=== PATIENT | female | born 1945 | race Caucasian/White ===

== ENCOUNTER → 2016-07-29 | Outpatient (CLI) | payer MEDICARE ==
[~2016-07-29] MED LIST: ARICEPT PO; ATIVAN PO; COREG12.5 MG PO; LASIX20 MG PO; LISINOPRIL20 MG PO; LO-DOSE ASPIRIN81 M1 PO; MIRAPEX1 MG PO; MULTI VITAMIN1 EACH PO; NAMENDA10 MG PO; OMEPRAZOLE20 M1 PO; ONGLYZA5 MG PO; REMERON15 MG PO; SEROQUEL300 MG PO; SEROQUEL50 M1 PO; SYNTHROID0.05 MG PO; VITAMIN D350000 UNIT PO; ZYLOPRIM100 MG PO
--- NOTE | ~2016-07-29 | CO ---
Unit #: [id number] #: [id number] Patient: FIOR LEWIS [id number] [address] [address] [id number] O MR#: [id number] NAME: FIOR LEWIS. ROOM: Age: 70 Sex: F Admission Date: 07/29/2016 : 1945 Attending Physician: Rashard Aldridge M.D. Primary Care Physician: Sabino Kelly M.D. Consultation Date: 07/29/2016 CONSULTATION REPORT REASON FOR CONSULTATION Pre ECT medical evaluation prior to ECT procedure scheduled by Dr. Rashard Aldridge for August 04, 2016. HISTORY OF PRESENT ILLNESS The patient is a 70-year-old female who presents to preprocedural screening for the reasons indicated above. She has had a history of major depression, general anxiety disorder, and dementia for which she was evaluated by Dr. Aldridge. Patient has undergone ECT in the past, although she states it has been a long time ago. She has no complaints other than tired at the time of this interview. She is accompanied by her daughter today. PAST MEDICAL HISTORY 1. Major depression. 2. Dementia. 3. General anxiety disorder. 4. Urinary tract infection. 5. Diabetes mellitus. 6. Hypertension. 7. Hypothyroidism. 8. Gout. 9. GERD. 10. Possible obstructive sleep apnea without definitive diagnosis. 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 12. Osteoarthritis. 13. Restless leg syndrome. 14. Reports history of CVA. 15. The patient denies a past medical history of heart attack, congestive heart failure, or chronic kidney disease. PAST SURGICAL HISTORY 1. Bilateral wrist surgeries. 2. Repair of head laceration. ALLERGIES Denies latex allergy. Medication allergies: Bupropion HCl (hives), amlodipine (severe edema), amoxicillin (rash), and duloxetine (severe sodium depletion). CURRENT MEDICATIONS 1. Onglyza 5 mg p.o. every morning. 2. Carvedilol 12.5 mg p.o. b.i.d. 3. Lisinopril 20 mg p.o. every morning. Unit #: [id number] #: [id number] Patient: FIOR LEWIS 4. Lasix 20 mg p.o. every morning. 5. Synthroid 0.05 mg p.o. every morning. 6. Zyloprim 100 mg p.o. every morning. 7. Omeprazole 20 mg p.o. every morning. 8. Namenda 10 mg p.o. at bedtime. 9. Aricept 10 mg p.o. at bedtime. 10. Lorazepam 0.5 mg p.o. every six hours p.r.n. anxiety. 11. Mirapex 1 mg p.o. t.i.d. 12. Remeron 15 mg p.o. every evening. 13. Seroquel 300 mg p.o. at bedtime. 14. Seroquel 50 mg p.o. b.i.d. at breakfast and lunch. 15. Multivitamin one p.o. every morning. 16. Low-dose aspirin EC 81 mg p.o. every morning. 17. Vitamin D3 at 50,000 units p.o. weekly. SOCIAL HISTORY Denies tobacco use, ETOH use, and illicit drug use. REVIEW OF SYSTEMS A 10-point review of systems is conducted and negative except as indicated under history of present illness and past medical history above. PHYSICAL EXAMINATION GENERAL: A 70-year-old female awake, alert, in no acute distress. VITAL SIGNS: Temperature 97.3, heart rate 67, respiratory rate 17, blood pressure 130/82, oxygen saturation 97% on room air. HEENT: Atraumatic, normocephalic. Sclerae anicteric. No discharge from eyes, ears, or nares. LYMPH: No preauricular, postauricular, tonsillar, submental, anterior, posterior, cervical adenopathy. ENDOCRINE: No thyromegaly, thyroid nodules, or tenderness. RESPIRATORY: Clear to auscultation in all lewis bilaterally without wheezes, rhonchi, or rales. CARDIOVASCULAR: S1, S2. Regular rate and rhythm without murmur or rub. GASTROINTESTINAL: Bowel sounds positive x4. Soft, nontender, nondistended. EXTREMITIES: No edema, cyanosis, or clubbing. MUSCULOSKELETAL: Strength 5/5 all extremities bilaterally to flexion/extension. NEUROLOGIC: Speech clear. Answers questions appropriately. Cranial nerves II-XII grossly intact. Follows commands. DIAGNOSTIC STUDIES LABORATORY: WBC 12.2, hemoglobin 12.7, hematocrit 39, platelets 204,000. Urinalysis: Leukocyte esterase 2+, nitrite negative, WBCs 10-25, bacteria negative, occasional squamous cells. Urine culture and sensitivity pending at this time. Sodium 140, potassium 3.6, chloride 105, CO2 of 27, glucose 132, BUN 16, creatinine 1, calcium 9.2. AST 17, ALT 13, alkaline phosphatase 100, bilirubin total 0.2, total protein 7.1, albumin 3.6. TSH 5.14. CARDIOVASCULAR: A 12-lead EKG: Sinus rhythm, borderline T abnormalities in anterior leads. No significant change from previous ECG. Date of study, June 04, 2016. IMPRESSION The patient is a 70-year-old female who presents to Unit #: [id number] #: [id number] Patient: FIOR LEWIS preprocedural screening for: 1. Pre electroconvulsive treatment medical evaluation: Patient's [place] Revised Cardiac Risk Index is equal to 1 to 2.5% if this patient were proceeding with a surgical procedure not involving the abdomen or the pelvis of 1 to 2.5%. This would represent the patient's perioperative risk of cardiac , fatal or nonfatal myocardial infarction, cardiopulmonary arrest, arrhythmia, and/or pulmonary edema. The patient has undergone electroconvulsive treatment in the past and tolerated it well. 2. Major depression (F33.2). 3. Dementia (F02.81). 4. General anxiety disorder (F41.1). 5. Possible urinary tract infection with history of urinary tract infections. Urine culture and sensitivity reports pending at this time. We have called a prescription to the patient's pharmacy ([facility] [phone]) today. The patient's daughter will pick the prescription up. 6. Mild leukocytosis, possibly related to urinary tract infection. The patient has no other signs or symptoms of infection at this time. 7. Diabetes mellitus. 8. Hypertension. 9. Hypothyroidism. 10. Gout. 11. Gastroesophageal reflux disease. 12. Possible obstructive sleep apnea: Patient has never been formally evaluated and does not have this diagnosis. She does not CPAP. 13. Vision loss, left peripheral eye. 14. Osteoarthritis. 15. Restless leg syndrome. Thank you for allowing us to participate in the care of this patient. All further tory-ECT orders including medication management will be per order of Dr. Aldridge. Dictated by... Paula Pierce A.P.R.N. for Tatianna Calderon/mellissa TD: 07/29/2016 15:18 JOB #: [id number] CONSULTATION REPORT Page 1 of 1 X Paula Pierce APRN CONSULTATION REPORT
[2016-07-29 12:47] LABS: HEMOGLOBIN 12.7 gm/dL (12.0-16.0); MEAN CELL VOLUME 88.2 FL (83-96); MEAN CORPUSCULAR HEMOGLOBIN 28.7 PG (28-34); MEAN CORPUSCULAR HGB CONC 32.5 g/dL (30-36); MEAN PLATELET VOLUME 10.7 FL (6.5-11.5); RED BLOOD COUNT 4.42 X10e (3.90-5.30); RED CELL DISTRIBUTION WIDTH 14.6 % (11.0-15.5); URINE APPEARANCE CLEAR; URINE BILIRUBIN NEG (NEG); URINE BLOOD NEG (NEG); URINE COLOR DK YELLOW; URINE GLUCOSE NEG (NEG); URINE KETONE NEG (NEG); URINE LEUKOCYTE ESTERASE 2+ (NEG); URINE NITRATE NEG (NEG); URINE PH 5.5 (5-8); URINE PROTEIN NEG (NEG); URINE SPECIFIC GRAVITY 1.016 (1.003-1.035); URINE UROBILINOGEN 0.2 MG/DL (NEG); WHITE BLOOD COUNT 12.2 X10e3 (4.0-10.5)
[2016-07-29 12:49] LABS: URINE BACTERIA AUWI NEG (NEGATIVE); URINE SQUAMOUS EPITHELIAL CELL OCC /[HPF]
[2016-07-29 13:08] LABS: URINE SOURCE CLEAN CATCH
[2016-07-29 13:09] LABS: URINE MUCUS PRESENT
[2016-07-29 13:11] LABS: URBCS1 AUWI 0-2 /[HPF] (0-2)
[2016-07-29 13:23] LABS: ALBUMIN SERUM 3.6 g/dL (3.5-5.0); BILIRUBIN,TOTAL 0.2 mg/dL (0.2-2.0); CALCIUM SERUM 9.2 mg/dL (8.4-10.2); GLOM FILT RATE Estimated 56.7 mL/min (>60); POTASSIUM 3.6 mmol/L (3.5-5.1); PROTEIN TOTAL SERUM 7.1 g/dL (6.0-8.3)
== END | disposition home or self-care (01) ==
LOC: CAMB 11:56
PROVIDERS: Psychiatry & Neurology Psychiatry
DX: Z01.812 Encounter for preprocedural laboratory examination (principal); F33.2 Major depressive disorder, recurrent severe without psychotic features; F02.81 Dementia in other diseases classified elsewhere, unspecified severity, with behavioral disturbance; F41.1 Generalized anxiety disorder; D72.829 Elevated white blood cell count, unspecified; E11.9 Type 2 diabetes mellitus without complications; I10 Essential (primary) hypertension; E03.9 Hypothyroidism, unspecified; M10.9 Gout, unspecified; K21.9 Gastro-esophageal reflux disease without esophagitis; H54.62 Unqualified visual loss, left eye, normal vision right eye; M19.90 Unspecified osteoarthritis, unspecified site; G25.81 Restless legs syndrome
CPT/HCPCS: 36415; 80053; 81003; 84443; 85027; 87086

== ENCOUNTER → 2016-08-04 | Day surgery (SDC) | payer OTHER ==
--- NOTE | ~2016-08-04 | ECT ---
Unit #: [id number] #: [id number] Patient: FIOR LEWIS [id number] [place] [address] [id number] O MR#: [id number] NAME: FIOR LEWIS. ROOM: Age: 70 Sex: F Admission Date: 08/04/2016 : 1945 Discharge Date: Attending Physician: Rashard Aldridge M.D. Primary Care Physician: Primary Care Physician No ECT NOTE DATE OF TREATMENT 08/04/2016 TREATMENT NUMBER 1 TREATMENT MODALITY Unilateral ECT. ANESTHESIA Glycopyrrolate: 0.2 mg. Brevital: 120 mg. Succinylcholine: 80 mg. TREATMENT PARAMETERS Charge: 60 millicoulombs Pulse Width: 1.0 milliseconds Frequency: 30 Hertz Duration: 1.25 seconds Current: 800 milliamps TREATMENT DELIVERED Energy: 16 joules Impedance: 327 ohms Charge: 60 millicoulombs SEIZURE MEASURES OMS: 21 seconds EE seconds COMPLICATIONS None. SUMMARY The patient had a good seizure with OMS and EEG measures. Depression has been pretty severe with psychomotor retardation, poor focus, and concentration, loss of interest in activities, social isolation, feelings of guilt, poor sleep, loss of appetite. No suicidal or homicidal ideation is noted. I will continue her ECT treatments on Thursday. DIFFERENTIAL DIAGNOSES AXIS I: F33.2, also F02.81 AXIS II: Deferred. Unit #: [id number] #: [id number] Patient: FIOR LEWIS AXIS III: Nothing acute. Dictated by... Tatianna Tom/elisa TD: 08/05/2016 07:04 JOB #: [id number] ECT NOTE Page 1 of 1 X Rashard Aldridge MD <ELECTRONICALLY SIGNED> 10/27/16 1207 X ECT
== END | disposition home or self-care (01) ==
LOC: CSUR 08:18
DX: F33.2 Major depressive disorder, recurrent severe without psychotic features (principal); F02.81 Dementia in other diseases classified elsewhere, unspecified severity, with behavioral disturbance; K21.9 Gastro-esophageal reflux disease without esophagitis; I10 Essential (primary) hypertension; E11.9 Type 2 diabetes mellitus without complications; Z79.4 Long term (current) use of insulin; M10.9 Gout, unspecified; E03.9 Hypothyroidism, unspecified; G25.81 Restless legs syndrome; H54.62 Unqualified visual loss, left eye, normal vision right eye; Z79.899 Other long term (current) drug therapy; Z87.440 Personal history of urinary (tract) infections; Z88.8 Allergy status to other drugs, medicaments and biological substances; Z88.0 Allergy status to penicillin
CPT/HCPCS: 82947; 90870; J0330

== ENCOUNTER → 2016-08-06 | Day surgery (SDC) | payer MEDICARE ==
--- NOTE | ~2016-08-06 | ECT ---
Unit #: [id number] #: [id number] Patient: FIOR LEWIS [id number] [address] [address] [id number] O MR#: [id number] NAME: FIOR LEWIS. ROOM: Age: 70 Sex: F Admission Date: 08/06/2016 : 1945 Discharge Date: Attending Physician: Rashard Aldridge M.D. Primary Care Physician: No Primary Care Physician ECT NOTE DATE OF TREATMENT . TREATMENT NUMBER 2 TREATMENT MODALITY Unilateral ECT. ANESTHESIA Glycopyrrolate: 0.2 mg. Brevital: 120 mg. Succinylcholine: 80 mg. TREATMENT PARAMETERS Charge: 240 millicoulombs Pulse Width: 1.0 milliseconds Frequency: 30 Hertz Duration: 5 seconds Current: 800 milliamps TREATMENT DELIVERED Energy: 56.2 joules Impedance: 285 ohms Charge: 240 millicoulombs SEIZURE MEASURES OMS: 10 seconds EE seconds COMPLICATIONS None. SUMMARY The patient had a good seizure with both OMS and EEG measures. Depression has not really shown any change from her first ECT. No significant side effects or problems noted. I will continue her ECT treatments on Thursday, continuing at a 4 time seizure threshold and will just assess on a day-to-day basis for mood symptoms and adjust energies as needed. DIFFERENTIAL DIAGNOSES AXIS I: F33.2. AXIS II: Deferred. AXIS III: Nothing acute. Unit #: [id number] #: [id number] Patient: FIOR LEWIS Dictated by... Tatianna Tom/alin TD: 08/06/2016 15:38 JOB #: [id number] ECT NOTE Page 1 of 1 X Rashard Aldridge MD <ELECTRONICALLY SIGNED> 10/27/16 1207 X ECT
== END | disposition home or self-care (01) ==
LOC: CSUR 08:25
DX: F33.2 Major depressive disorder, recurrent severe without psychotic features (principal); E11.9 Type 2 diabetes mellitus without complications; K21.9 Gastro-esophageal reflux disease without esophagitis; Z79.4 Long term (current) use of insulin; I10 Essential (primary) hypertension; Z88.8 Allergy status to other drugs, medicaments and biological substances
CPT/HCPCS: 82947; 90870; J0330; J1885

== ENCOUNTER → 2016-08-11 | Day surgery (SDC) | payer MEDICARE ==
--- NOTE | ~2016-08-11 | ECT ---
Unit #: [id number] #: [id number] Patient: FIOR LEWIS [id number] [address] [address] [id number] O MR#: [id number] NAME: FIOR LEWIS. ROOM: Age: 70 Sex: F Admission Date: 08/11/2016 : 1945 Discharge Date: Attending Physician: Rashard Aldridge M.D. Primary Care Physician: Primary Care Physician No ECT NOTE DATE OF TREATMENT 08/11/2016 TREATMENT NUMBER 3 TREATMENT MODALITY Unilateral ECT ANESTHESIA Glycopyrrolate: 0.2 mg Brevital: 120 mg Succinylcholine: 80 mg TREATMENT PARAMETERS Charge: 264 millicoulombs Pulse Width: 1.0 milliseconds Frequency: 30 Hertz Duration: 5.5 seconds Current: 800 milliamps TREATMENT DELIVERED Energy: 58.3 joules Impedance: 274 ohms Charge: 264 millicoulombs SEIZURE MEASURES OMS: 12 seconds EE seconds COMPLICATIONS None. SUMMARY The patient had a good seizure with OMS and EEG measures. Her depression has not really changed much after her first couple of ECTs. No side effects or issues noted. I will continue her ECT treatments on Thursday. DIFFERENTIAL DIAGNOSES AXIS I: F33.2. AXIS II: Deferred. AXIS III: Nothing acute. Unit #: [id number] #: [id number] Patient: FIOR LEWIS Dictated by... Tatianna Tom/vanessa TD: 08/12/2016 20:30 JOB #: [id number] ECT NOTE Page 1 of 1 X Rashard Aldridge MD <ELECTRONICALLY SIGNED> 10/27/16 1207 X ECT
== END | disposition home or self-care (01) ==
LOC: CSUR 08:52
DX: F33.2 Major depressive disorder, recurrent severe without psychotic features (principal); F02.81 Dementia in other diseases classified elsewhere, unspecified severity, with behavioral disturbance; F41.1 Generalized anxiety disorder; H54.62 Unqualified visual loss, left eye, normal vision right eye; K21.9 Gastro-esophageal reflux disease without esophagitis; I10 Essential (primary) hypertension; M10.9 Gout, unspecified; E11.9 Type 2 diabetes mellitus without complications; Z79.4 Long term (current) use of insulin; E03.9 Hypothyroidism, unspecified; Z79.899 Other long term (current) drug therapy; Z87.440 Personal history of urinary (tract) infections; Z98.890 Other specified postprocedural states; Z88.8 Allergy status to other drugs, medicaments and biological substances; Z88.0 Allergy status to penicillin
CPT/HCPCS: 82947; 90870; J0330; J1885

== ENCOUNTER → 2016-08-15 | Day surgery (SDC) | payer MEDICARE ==
--- NOTE | ~2016-08-15 | ECT ---
Unit #: [id number] #: [id number] Patient: FIOR LEWIS [id number] [address] [address] [id number] O MR#: [id number] NAME: FIOR LEWIS. ROOM: Age: 70 Sex: F Admission Date: 08/15/2016 : 1945 Discharge Date: Attending Physician: Rashard Aldrideg M.D. Primary Care Physician: Primary Care Physician No ECT NOTE DATE OF TREATMENT 08/15/2016 TREATMENT NUMBER 4 TREATMENT MODALITY Unilateral ECT ANESTHESIA Glycopyrrolate: 0.2 mg Brevital: 120 mg Succinylcholine: 80 mg TREATMENT PARAMETERS Charge: 352 millicoulombs Pulse Width: 1.0 milliseconds Frequency: 40 Hertz Duration: 5.5 seconds Current: 800 milliamps TREATMENT DELIVERED Energy: 79 joules Impedance: 275 ohms Charge: 352 millicoulombs SEIZURE MEASURES OMS: 17 seconds EE seconds COMPLICATIONS None. SUMMARY The patient had a good seizure with both OMS and EEG measures. Depression has not really shown much of a change in her initial few ECTs. We will continue her ECT treatment on Thursday and we will just treat and follow. DIFFERENTIAL DIAGNOSES AXIS I: F33.2. AXIS II: Deferred. AXIS III: Nothing acute. Unit #: [id number] #: [id number] Patient: FIOR LEWIS Dictated by... Tatianna Tom/vanessa TD: 08/15/2016 21:22 JOB #: [id number] ECT NOTE Page 1 of 1 X Rashard Aldridge MD <ELECTRONICALLY SIGNED> 10/27/16 1207 X ECT
== END | disposition home or self-care (01) ==
LOC: CSUR 07:52
DX: F33.2 Major depressive disorder, recurrent severe without psychotic features (principal); E03.9 Hypothyroidism, unspecified; K21.9 Gastro-esophageal reflux disease without esophagitis; Z87.440 Personal history of urinary (tract) infections; Z86.73 Personal history of transient ischemic attack (TIA), and cerebral infarction without residual deficits; Z88.1 Allergy status to other antibiotic agents; Z88.8 Allergy status to other drugs, medicaments and biological substances; Z79.84 Long term (current) use of oral hypoglycemic drugs; Z79.82 Long term (current) use of aspirin; Z79.899 Other long term (current) drug therapy
CPT/HCPCS: 82947; 90870; J0330; J1885

== ENCOUNTER → 2016-08-20 | Day surgery (SDC) | payer MEDICARE ==
--- NOTE | ~2016-08-20 | ECT ---
Unit #: [id number] #: [id number] Patient: FIOR LEWIS [id number] [place] [address] [id number] O MR#: [id number] NAME: FIOR LEWIS. ROOM: Age: 71 Sex: F Admission Date: 08/20/2016 : 1945 Discharge Date: Attending Physician: Rashard Aldridge M.D. Primary Care Physician: Primary Care Physician No ECT NOTE DATE OF TREATMENT 08/20/2016 TREATMENT NUMBER 5 MODE Unilateral ECT. ANESTHESIA Glycopyrrolate: 0.2 mg. Brevital: 120 mg. Succinylcholine: 80 mg. TREATMENT PARAMETERS Charge: 352 millicoulombs Pulse Width: 1.0 milliseconds Frequency: 40 Hertz Duration: 5.5 seconds Current: 800 milliamps TREATMENT DELIVERED Energy: 88.5 joules Impedance: 330 ohms Charge: 352 millicoulombs SEIZURE MEASURES OMS: 20 seconds EE seconds SUMMARY The patient had a good seizure with OMS and EEG measures. Depression seems to be showing some benefit. She is getting more pleasure from activities. She has got more engaged in activities and seems to be more interacting with peers in a fci. I will continue her ECT treatments on Thursday and with a plan of wrapping up her treatments next week. DIFFERENTIAL DIAGNOSES AXIS I: F33.2 AXIS II: Deferred. AXIS III: Nothing acute. Unit #: [id number] #: [id number] Patient: FIOR LEWIS Dictated by... Tatianna Tom/elisa TD: 08/21/2016 12:29 JOB #: [id number] ECT NOTE Page 1 of 1 X Rashard Aldridge MD <ELECTRONICALLY SIGNED> 10/27/16 1207 X ECT
== END | disposition home or self-care (01) ==
LOC: CSUR 08:00
DX: F33.2 Major depressive disorder, recurrent severe without psychotic features (principal); E11.9 Type 2 diabetes mellitus without complications; K21.9 Gastro-esophageal reflux disease without esophagitis; I10 Essential (primary) hypertension; E03.9 Hypothyroidism, unspecified; Z87.440 Personal history of urinary (tract) infections; Z86.73 Personal history of transient ischemic attack (TIA), and cerebral infarction without residual deficits; Z88.1 Allergy status to other antibiotic agents; Z88.8 Allergy status to other drugs, medicaments and biological substances; Z79.84 Long term (current) use of oral hypoglycemic drugs; Z79.82 Long term (current) use of aspirin; Z79.899 Other long term (current) drug therapy
CPT/HCPCS: 82947; 90870; J0330; J1885

== ENCOUNTER → 2016-08-22 | Day surgery (SDC) | payer MEDICARE ==
--- NOTE | ~2016-08-22 | ECT ---
Unit #: [id number] #: [id number] Patient: FIOR LEWIS [id number] [place] [address] [id number] O MR#: [id number] NAME: FIOR LEWIS. ROOM: Age: 71 Sex: F Admission Date: 08/22/2016 : 1945 Discharge Date: Attending Physician: Rashard Aldridge M.D. Primary Care Physician: Sabino Kelly M.D. ECT NOTE DATE OF TREATMENT 08/22/2016 TREATMENT NUMBER 6 TREATMENT MODALITY Unilateral ECT. ANESTHESIA Glycopyrrolate: 0.2 mg Brevital: 120 mg Succinylcholine: 100 mg TREATMENT PARAMETERS Charge: 352 millicoulombs Pulse Width: 1.0 milliseconds Frequency: 40 Hertz Duration: 5.5 seconds Current: 800 milliamps TREATMENT DELIVERED Energy: 83.3 joules Impedance: 290 ohms Charge: 352 millicoulombs SEIZURE MEASURES OMS: 17 seconds EE seconds COMPLICATIONS None. SUMMARY The patient had a good seizure with her OMS and EEG measures. Depression has shown significant improvement since the beginning her ECT. She is much more interactive with staff and peers. She has been more engaged her daughter. She seems to be smiling more more interest in activities. She is sleeping better energy seems to have improved during the day. I will give her 1 more ECT treatment on Thursday to wrap up her course and if she has done well over the next 4 days we will conclude her ECT at that point and she will follow up with me in my outpatient clinic. DIFFERENTIAL DIAGNOSIS Unit #: [id number] #: [id number] Patient: FIOR LEWIS [place] I: F33.2. [place] II: Deferred. [place] III: Nothing acute. Dictated by... Tatianna Tom/shane TD: 08/23/2016 08:21 JOB #: [id number] ECT NOTE Page 1 of 1 X Rashard Aldridge MD <ELECTRONICALLY SIGNED> 10/27/16 1207 X ECT
== END | disposition home or self-care (01) ==
LOC: CSUR 07:24
DX: F33.2 Major depressive disorder, recurrent severe without psychotic features (principal); E03.9 Hypothyroidism, unspecified; K21.9 Gastro-esophageal reflux disease without esophagitis; F03.90 Unspecified dementia, unspecified severity, without behavioral disturbance, psychotic disturbance, mood disturbance, and anxiety; F41.9 Anxiety disorder, unspecified; I10 Essential (primary) hypertension; E11.9 Type 2 diabetes mellitus without complications; Z79.84 Long term (current) use of oral hypoglycemic drugs; M19.90 Unspecified osteoarthritis, unspecified site; M10.9 Gout, unspecified; Z87.440 Personal history of urinary (tract) infections; Z88.8 Allergy status to other drugs, medicaments and biological substances
CPT/HCPCS: 82947; 90870; J0330; J1885

== ENCOUNTER → 2016-08-27 | Day surgery (SDC) | payer MEDICARE ==
--- NOTE | ~2016-08-27 | ECT ---
Unit #: [id number] #: [id number] Patient: FIOR LEWIS [id number] [address] [address] [id number] O MR#: [id number] NAME: FIOR LEWIS. ROOM: Age: 71 Sex: F Admission Date: 08/27/2016 : 1945 Discharge Date: Attending Physician: Rashard Aldridge M.D. Primary Care Physician: Sabino Kelly M.D. ECT NOTE DATE OF TREATMENT 08/27/2016 TREATMENT NUMBER 7 TREATMENT MODALITY Unilateral ECT ANESTHESIA Glycopyrrolate: 0.2 mg Brevital: 120 mg Succinylcholine: 80 mg TREATMENT PARAMETERS Charge: 440 millicoulombs Pulse Width: 1.0 milliseconds Frequency: 50 Hertz Duration: 5.5 seconds Current: 800 milliamps TREATMENT DELIVERED Energy: 113.1 joules Impedance: 296 ohms Charge: 440 millicoulombs SEIZURE MEASURES OMS: 11 seconds EE seconds COMPLICATIONS None. SUMMARY The patient did have a shorter seizure with OMS and EEG measures today. I will increase the energy to maximum stimulus for Thursday and we will conclude her ECTs at that point. DIFFERENTIAL DIAGNOSIS [place] I: F33.2. [place] II: Deferred. [place] III: Nothing acute. Unit #: [id number] #: [id number] Patient: FIOR LEWIS Dictated by... Tatianna Tom/shane TD: 08/28/2016 02:22 JOB #: [id number] ECT NOTE Page 1 of 1 X Rashard Aldridge MD <ELECTRONICALLY SIGNED> 10/27/16 1207 X ECT
== END | disposition home or self-care (01) ==
LOC: CSUR 07:22
DX: F33.2 Major depressive disorder, recurrent severe without psychotic features (principal); E03.9 Hypothyroidism, unspecified; K21.9 Gastro-esophageal reflux disease without esophagitis; F03.90 Unspecified dementia, unspecified severity, without behavioral disturbance, psychotic disturbance, mood disturbance, and anxiety; F41.9 Anxiety disorder, unspecified; E11.9 Type 2 diabetes mellitus without complications; M19.90 Unspecified osteoarthritis, unspecified site; I10 Essential (primary) hypertension; Z87.440 Personal history of urinary (tract) infections; Z86.73 Personal history of transient ischemic attack (TIA), and cerebral infarction without residual deficits; Z88.1 Allergy status to other antibiotic agents; Z88.6 Allergy status to analgesic agent; Z88.8 Allergy status to other drugs, medicaments and biological substances; Z79.899 Other long term (current) drug therapy; Z79.84 Long term (current) use of oral hypoglycemic drugs; Z79.82 Long term (current) use of aspirin; Z98.890 Other specified postprocedural states
CPT/HCPCS: 82947; 90870; J0330; J1885

== ENCOUNTER → 2016-08-29 | Day surgery (SDC) | payer MEDICARE ==
--- NOTE | ~2016-08-29 | ECT ---
Unit #: [id number] #: [id number] Patient: FIOR LEWIS [id number] [place] [address] [id number] O MR#: [id number] NAME: FIOR LEWIS. ROOM: Age: 71 Sex: F Admission Date: 08/29/2016 : 1945 Discharge Date: Attending Physician: Rashard Aldridge M.D. Primary Care Physician: Sabino Kelly M.D. ECT NOTE DATE OF TREATMENT 08/29/2016 TREATMENT NUMBER 8 TREATMENT MODALITY Unilateral ECT ANESTHESIA Glycopyrrolate: 0.2 mg Brevital: 120 mg Succinylcholine: 80 mg TREATMENT PARAMETERS Charge: 440 millicoulombs Pulse Width: 1.0 milliseconds Frequency: 50 Hertz Duration: 5.5 seconds Current: 800 milliamps TREATMENT DELIVERED Energy: 95.6 joules Impedance: 283 ohms Charge: 440 millicoulombs SEIZURE MEASURES OMS: 10 seconds EE seconds COMPLICATIONS None. SUMMARY The patient has done pretty well with her ECT series. We do not see any depression on evaluation today. She has no psychomotor slowing. No difficulty with focus and concentration. Memory seems to have improved somewhat. She is sleeping better. Better energy during the day. She is being more engaged in activities. Seems to be looking forward to activities and has no psychomotor retardation noted today. I will conclude her course of ECT today and she is going to follow up with me in my office in the next 2 or 3 weeks. DIFFERENTIAL DIAGNOSES Unit #: [id number] #: [id number] Patient: FIOR LEWIS AXIS I: F33.2. AXIS II: Deferred. AXIS III: Nothing acute. Dictated by... Tatinana Tom/vanessa TD: 08/29/2016 16:34 JOB #: [id number] ECT NOTE Page 1 of 1 X Rashard Aldridge MD <ELECTRONICALLY SIGNED> 10/27/16 1207 X ECT
== END | disposition home or self-care (01) ==
LOC: CSUR 07:32
DX: F20.0 Paranoid schizophrenia (principal); F32.9 Major depressive disorder, single episode, unspecified; F41.1 Generalized anxiety disorder; F03.90 Unspecified dementia, unspecified severity, without behavioral disturbance, psychotic disturbance, mood disturbance, and anxiety; E11.9 Type 2 diabetes mellitus without complications; I10 Essential (primary) hypertension; E03.9 Hypothyroidism, unspecified; K21.9 Gastro-esophageal reflux disease without esophagitis; M19.90 Unspecified osteoarthritis, unspecified site; Z86.73 Personal history of transient ischemic attack (TIA), and cerebral infarction without residual deficits; Z88.1 Allergy status to other antibiotic agents; Z88.8 Allergy status to other drugs, medicaments and biological substances; Z87.440 Personal history of urinary (tract) infections; Z79.899 Other long term (current) drug therapy; Z79.82 Long term (current) use of aspirin; Z98.890 Other specified postprocedural states
CPT/HCPCS: 82947; 90870; J0330; J1885; J2405